=== PATIENT | female | born 1940 | race Caucasian/White ===

== ENCOUNTER → 2024-04-22 16:40 | Outpatient (REF) | payer OTHER, SELFPAY ==
[2024-04-22 17:28] LABS: Erythrocyte Sed Rate 28 mm/hour (0-20)
[2024-04-23 09:26] LABS: CRP, Highly Sensitive 1.71 mg/L
== END ==
LOC: REG 16:40
PROVIDERS: ATTENDING PHYSICIAN Internal Medicine Cardiovascular Disease
DX: M31.6 Other giant cell arteritis (principal)
CPT/HCPCS: 36415; 85652; 86141

== ENCOUNTER 2024-09-03 12:55 | Emergency (ER) | payer OTHER, SELFPAY ==
[2024-09-03 12:59] VITALS: BP 140/81
--- NOTE | 2024-09-03 13:17 | ED.GENMED ---
History of Present Illness
General
Chief Complaint: Dizziness
Time Seen by Provider: 09/03/24 13:17
History of Present Illness
History of Present Illness:
TIME OF INITIAL ENCOUNTER: 2 PM
HPI: Patient had right knee replacement 4 days ago at [facility] and discharged the following day. Today, she walked about 30 steps up a ramp into physical therapy and had rather significant shortness of breath. This is new for her. However she
does have a history of COPD. At rest currently she has no symptoms including no shortness of breath. She had nausea earlier as well as some dizziness but all symptoms have resolved. She took her inhaler earlier today.
EXAM:
GENERAL: Well appearing in no distress
HEENT: Moist oral mucosa
CARDIOVASCULAR: No murmurs, normal heart rate, regular rhythm, No chest wall tenderness
PULMONARY: No respiratory distress, slightly decreased breath sounds equally
ABDOMEN: Soft with no peritoneal signs, no tenderness
NEUROLOGIC: Excellent strength all extremities, no coordination deficits
PSYCHIATRIC: Appropriate mental status, normal insight and judgement
EXTREMITIES: Decreased active range of motion to the left lower extremity related to recent knee surgery, there is significant ecchymosis noted at the knee on down, no evidence of cellulitis
SKIN: As above
NUMBER AND COMPLEXITY OF PROBLEMS ADDRESSED AT THE ENCOUNTER
� Chronic conditions affecting care: A-fib on Eliquis, COPD, high blood pressure, hyperlipidemia, hypothyroidism
� Acute Exacerbation and/or Progression of Chronic Illness: This is an acute problem
� Differential Diagnosis includes: PE, atelectasis, pneumonia, anemia
AMOUNT AND/OR COMPLEXITY OF DATA TO BE REVIEWED AND ANALYZED
� I performed an independent evaluation of and my interpretation is:
EKG: Sinus 83, no acute ST abnormality, borderline evidence for LVH
CT: CT of the chest shows no sign of PE but is also consistent with COPD
X-rays:
Laboratory Studies: White count 12.1, hemoglobin 8.6, chemistries unremarkable, BNP 1140
Other:
� Review of other/old records: The patient had a colonoscopy related to iron deficiency anemia in 2022; hemoglobin was higher recently but had been in the eights in the past as well
� Clinical information was obtained by an independent historian: I spoke to the daughter and at bedside
� Prescriptions/Medications Considered but not given:
� Further testing considered but not performed:
RISK OF COMPLICATIONS AND/OR MORBIDITY OR MORTALITY OF PATIENT MANAGEMENT
� Social determinants of health affecting care: Lives at home
� Discussion with other providers:
� Escalation of care including admission/observation vs risk of discharge considered: The patient has been observed and she remained sinus on the monitor. Hemoglobin has dropped and white count is slightly higher which may be
related to recent postop state
ANY OTHER UPDATES:
5:55 PM: I reassessed patient, there is concern for increased urinary frequency despite not taking much fluid in. Will check urinalysis. Urinalysis shows no evidence of infection
6:40 PM: Family still concerned about urinary frequency despite no sign of UTI�bladder scan obtained.
Past History
Past History
ED Past Medical History: HTN, Hypercholesterolemia and Hypothyroidism
ED Past Surgical History: Bowel resection, Gynecological, Tonsilectomy and Other (thyroidectomy)
Social History
Tobacco: Non-smoker
Alcohol: None
Drug: None
Personal:
Living: with family
Employment: Employed
Family History
Family History: CAD
Phy Exam
Physical Exam
Physical Exam:
See HPI
Course
Orders/Labs/Results
Orders:
Orders
09/03/24 12:59
Electrocardiogram (*1) Urgent
Reason for Study: Vertigo / Dizzy
EKG- Treatment ONCE
09/03/24 13:38
Complete Blood Count/With Diff Urgent
Comprehensive Metabolic Panel Urgent
NT-proBNP Urgent
Troponin I Urgent
09/03/24 15:14
CT Chest Pe Study Urgent
Comment:
Reason For Exam: post op sob
09/03/24 17:53
Straight cath- Treatment ONCE
09/03/24 18:03
Urinalysis Reflex To Culture Urgent
Date Specimen was Collected: 09/03/24
Time Specimen was Collected: 18:02
Abnormal Lab Results
09/03/24
13:38
WBC 12.1 H 10^3/uL
(4.8-10.8)
RBC 2.67 L 10^6/uL
(4.20-5.40)
Hgb 8.6 L g/dL
(12.0-16.0)
Hct 25.7 L %
(37.0-47.0)
MCH 32.2 H pg
(27.0-31.0)
Abs Immat Gran (auto) 0.1 H 10^3/uL
(0-0.05)
Absolute Neuts (auto) 9.1 H 10^3/uL
(1.4-6.5)
Absolute Monos (auto) 0.8 H 10^3/uL
(0.1-0.6)
Neutrophils % 75.7 H %
(42.2-75.2)
Lymphocytes % 16.0 L %
(20.5-51.1)
BUN 19 H mg/dl
(7-17)
Glucose 135 H mg/dl
(70-99)
Total Protein 6.1 L g/dl
(6.3-8.2)
09/03/24 13:38
09/03/24 13:38
Vital Signs
Initial and Last Documented VS:
Initial Vital Signs
Temp Pulse Resp BP Pulse Ox
97.7 F 87 16 140/81 98
09/03/24 12:59 09/03/24 12:59 09/03/24 12:59 09/03/24 12:59 09/03/24 12:59
Last Documented Vital Signs
Temp Pulse Resp BP Pulse Ox
97.7 F 90 21 160/54 96
09/03/24 12:59 09/03/24 18:00 09/03/24 18:00 09/03/24 16:00 09/03/24 18:00
*Critical Care Note
Total Time (30-74mins, 75-104mins- exclusive of procedures): Not Applicable
ED Attending Note
-
Portions of this chart may have been created with voice recognition software.� Occasional wrong word or��sound alike� substitutions may have occurred due to the inherent limitations of voice recognition software.
Discharge Plan
Departure
Patient Disposition: Home (Routine Discharge)
Date of Disposition: 09/03/24
Time of Disposition: 18:43
Patient with high blood pressure during this ER visit?: Yes
Discharge Problem:
Near syncope
Instructions: Dizziness
Prescriptions:
No Action
amlodipine 5 MG tablet
5 mg PO DAILY
Coq10 400 MG Capsule
400 mg PO HS
atorvastatin 20 MG tablet
20 mg PO DAILY
albuterol sulfate 1 PUFF HFA aerosol inhaler
1 puff inhalation R Q4HPRN PRN (Reason: SOB)
levothyroxine 50 MCG tablet
50 mcg PO DAILY@0700
cholecalciferol (vitamin D3) 1,000 UNITS tablet
1,000 units PO DAILY
apixaban [Eliquis] 5 MG tablet
5 mg PO BID
hydrocodone-acetaminophen 1 TABLET tablet
1 tab PO Q4HPRN PRN (Reason: moderate to severe pain) Qty: 25 0RF
Patient Comments:
pt has not taken
Anoro Ellipta 62.5-25 Mcg INH Inhaler
1 puff inhalation DAILY
acetaminophen 325 MG tablet
650 mg PO Q4 0RF
Referrals:
UNKNOWN - PT DOES,NOT KNOW [Family Provider] -
Activity Restrictions/Additional Instructions:
The CAT scan of your chest shows no sign of blood clot, COPD is also suggested, you do have some very small lung nodules measuring up to 3 mm�'consider follow-up CT in 6 to 12 months if the patient is considered high risk'�follow-up your primary
care doctor.
Interventions
Interventions:
*Risk Screen - Suicide Last Done: 09/03/24 13:02
*General Assessment Last Done: 09/03/24 13:32
*Neglect/Abuse Screening Last Done: 09/03/24 13:02
*ED COVID-19 Vaccine History Last Done: 09/03/24 13:32
ED- Cardiac Assessment Last Done: 09/03/24 16:30
ED- Neurological Assessment Last Done: 09/03/24 16:30
ED Swallowing Screen Last Done: 09/03/24 16:30
Discharge Date and Time
Print Language: CITIZEN [place]
[2024-09-03 13:30] VITALS: BP 158/63
[2024-09-03 13:59] LABS: ALT (SGPT) 17 U/L (0-35); AST (SGOT) 33 U/L (14-36); Albumin 3.8 g/dl (3.5-5.0); Alkaline Phosphatase 85 U/L (38-126); Blood Urea Nitrogen 19 mg/dl (7-17); Calcium 8.8 mg/dl (8.4-10.2); Carbon Dioxide 27 mmol/L (22-30); Chloride 98 mmol/L (98-107); Glucose 135 mg/dl (70-99); Potassium 4.5 mmol/L (3.5-5.1); Sodium 137 mmol/L (135-145); Total Bilirubin 0.9 mg/dl (0.2-1.3); Total Protein 6.1 g/dl (6.3-8.2); eGFR > 60.00
[2024-09-03 14:00] VITALS: BP 129/48
[2024-09-03 14:02] LABS: % Basophils 0.2 % (0-2); % Eosinophils 0.8 % (0-6); % Immature Granulocytes 0.5 % (0-0.5); % Monocytes 6.8 % (1.7-9.3); % Neutrophils 75.7 % (42.2-75.2); Absolute Eosinophils 0.1 10^3/uL (0-0.7); Absolute Immature Granulocytes 0.1 10^3/uL (0-0.05); Absolute Lymphocytes 1.9 10^3/uL (1.2-3.4); Absolute Monocytes 0.8 10^3/uL (0.1-0.6); Absolute Neutrophils 9.1 10^3/uL (1.4-6.5); Hematocrit 25.7 % (37.0-47.0); Hemoglobin 8.6 g/dL (12.0-16.0); Mean Corp Hgb Conc. 33.5 g/dL (33.0-37.0); Mean Corpuscular Hgb 32.2 pg (27.0-31.0); Mean Corpuscular Volume 96.3 fL (81.0-99.0); Mean Platelet Volume 10.1 fL (7.4-10.4); Nucleated Red Blood Cells % 0.2 %; Platelet Count 229 10^3/uL (130-400); Red Blood Cell Count 2.67 10^6/uL (4.20-5.40); Red Cell Dist. Width 12.6 % (11.5-14.5); White Blood Cell Count 12.1 10^3/uL (4.8-10.8)
[2024-09-03 14:10] LABS: NT-proBNP 1140 pg/ml; Troponin I 0.017 ng/ml
[2024-09-03 15:51] VITALS: BP 138/57
[2024-09-03 16:00] VITALS: BP 160/54; BMI 26.3
[2024-09-03 18:19] LABS: Urine Albumin Negative (Neg - Trace); Urine Bilirubin Negative (Negative); Urine Character Clear (Clear); Urine Color Yellow; Urine Glucose Negative (Negative); Urine Ketone Negative (Negative); Urine Leukocyte Negative (Negative); Urine Nitrite Negative (Negative); Urine Occult Blood Negative (Negative); Urine Specific Gravity 1.005 (<1.030); Urine Urobilinogen Negative (Neg - 1+)
[2024-09-03 18:45] VITALS: BP 148/70
== END 2024-09-03 19:06 | disposition home or self-care (01) ==
LOC: EMR 12:55
PROVIDERS: EMERGENCY PHYSICIAN Emergency Medicine
DX: E03.9 Hypothyroidism, unspecified (principal); E78.00 Pure hypercholesterolemia, unspecified; I10 Essential (primary) hypertension; Z96.651 Presence of right artificial knee joint
CPT/HCPCS: 99284; 71275; 80053; 81003; 83880; 84484; 85025; 93005; Q9967

== ENCOUNTER → 2024-09-14 16:35 | Outpatient (REF) | payer OTHER, SELFPAY ==
[2024-09-14 17:42] LABS: % Basophils 0.4 % (0-2); % Eosinophils 1.3 % (0-6); % Immature Granulocytes 0.4 % (0-0.5); % Monocytes 7.4 % (1.7-9.3); % Neutrophils 72.5 % (42.2-75.2); Absolute Eosinophils 0.1 10^3/uL (0-0.7); Absolute Monocytes 0.8 10^3/uL (0.1-0.6); Hematocrit 28.9 % (37.0-47.0); Hemoglobin 9.4 g/dL (12.0-16.0); Mean Corp Hgb Conc. 32.5 g/dL (33.0-37.0); Mean Corpuscular Hgb 32.3 pg (27.0-31.0); Mean Corpuscular Volume 99.3 fL (81.0-99.0); Mean Platelet Volume 9.6 fL (7.4-10.4); Nucleated Red Blood Cells % 0 %; Platelet Count 317 10^3/uL (130-400); Red Blood Cell Count 2.91 10^6/uL (4.20-5.40); Red Cell Dist. Width 14.2 % (11.5-14.5)
[2024-09-14 18:07] LABS: ALT (SGPT) 11 U/L (0-35); AST (SGOT) 22 U/L (14-36); Alkaline Phosphatase 102 U/L (38-126); Blood Urea Nitrogen 25 mg/dl (7-17); Calcium 9.2 mg/dl (8.4-10.2); Carbon Dioxide 28 mmol/L (22-30); Chloride 99 mmol/L (98-107); Glucose 90 mg/dl (70-99); Iron 51 ug/dl (37-170); Potassium 4.6 mmol/L (3.5-5.1); Sodium 137 mmol/L (135-145); Total Bilirubin 0.5 mg/dl (0.2-1.3); Total Protein 6.4 g/dl (6.3-8.2); eGFR > 60.00
[2024-09-14 18:16] LABS: Percent Saturation 17 % (20-50); Total Iron Binding Capacity 289 ug/dl (265-497)
== END ==
LOC: REG 16:35
PROVIDERS: ATTENDING PHYSICIAN Internal Medicine Hematology & Oncology; FAMILY PHYSICIAN Family Medicine
DX: D50.9 Iron deficiency anemia, unspecified (principal)
CPT/HCPCS: 36415; 80053; 82728; 83540; 83550; 85025

== ENCOUNTER → 2024-10-19 11:27 | Outpatient (REF) | payer OTHER, SELFPAY ==
[2024-10-19 12:39] LABS: % Basophils 0.7 % (0-2); % Eosinophils 1.2 % (0-6); % Immature Granulocytes 0.3 % (0-0.5); % Lymphocytes 24.1 % (20.5-51.1); % Monocytes 8.4 % (1.7-9.3); % Neutrophils 65.3 % (42.2-75.2); Absolute Basophils 0.1 10^3/uL (0-0.2); Absolute Eosinophils 0.1 10^3/uL (0-0.7); Absolute Lymphocytes 1.8 10^3/uL (1.2-3.4); Absolute Monocytes 0.6 10^3/uL (0.1-0.6); Absolute Neutrophils 4.8 10^3/uL (1.4-6.5); Hematocrit 35.9 % (37.0-47.0); Hemoglobin 11.6 g/dL (12.0-16.0); Mean Corp Hgb Conc. 32.3 g/dL (33.0-37.0); Mean Corpuscular Hgb 31.3 pg (27.0-31.0); Mean Corpuscular Volume 96.8 fL (81.0-99.0); Mean Platelet Volume 10.2 fL (7.4-10.4); Nucleated Red Blood Cells % 0 %; Platelet Count 220 10^3/uL (130-400); Red Blood Cell Count 3.71 10^6/uL (4.20-5.40); Red Cell Dist. Width 12.5 % (11.5-14.5); White Blood Cell Count 7.3 10^3/uL (4.8-10.8)
[2024-10-19 13:53] LABS: Iron 86 ug/dl (37-170)
[2024-10-19 14:02] LABS: Percent Saturation 28 % (20-50); Total Iron Binding Capacity 298 ug/dl (265-497)
== END ==
LOC: REG 11:27
PROVIDERS: ATTENDING PHYSICIAN Nurse Practitioner Adult Health; FAMILY PHYSICIAN Family Medicine
DX: D50.9 Iron deficiency anemia, unspecified (principal)
CPT/HCPCS: 36415; 82728; 83540; 83550; 85025